=== PATIENT | male | born 1960 | race Caucasian/White ===

== ENCOUNTER 2023-02-01 10:36 | Outpatient (CLI) | payer BC, SELFPAY | END 2023-02-01 10:37 | disposition home or self-care (01) | LOC: AMB 02-22 12:14 | PROVIDERS: PCP Family Medicine; Visit Provider Emergency Medicine | DX: R45.851 Suicidal ideations (principal); F10.239 Alcohol dependence with withdrawal, unspecified | CPT/HCPCS: A0425; A0426; A0428 ==